=== PATIENT | female | born 1980 | race African-American/Black ===

== ENCOUNTER 2016-09-16 05:00 | Emergency (ER) | payer MEDICAID, OTHER ==
[~2016-09-16] VITALS: Ht 167.6 cm; Wt 90.5 kg
[~2016-09-16 05:00] MED LIST: CYCL-36 PO; IBUP800T23 PO
[2016-09-16 05:03] VITALS: BP 129/73; PULSE 96; RESP 16; TEMP 97.9; O2SAT 97
[2016-09-16] MEDS ORDERED: SODIUM CHLOR 0.9% 1000 ML INJ 1,000 ML IV SCH (05:17)
[2016-09-16 05:28] LABS: AUTOMATED NEUTROPHIL # 5.3 TH/MM3 (1.8-7.7); BASOPHIL # 0.1 TH/MM3 (0-0.2); BASOPHIL % 1.1 % (0.0-2.0); EOSINOPHIL # 0.1 TH/MM3 (0-0.4); EOSINOPHIL % 0.7 % (0.0-4.0); HEMATOCRIT 36.8 % (35.0-46.0); HEMO FLAGS DIFF FINAL; LYMPH % 35.3 % (9.0-44.0); LYMPHOCYTE # 3.3 TH/MM3 (1.0-4.8); MEAN CORPUSCULAR HEMOGLOBIN 28.5 PG (27.0-34.0); MEAN CORPUSCULAR HGB CONC 35.2 % (32.0-36.0); MONO % 6.8 % (0.0-8.0); NEUT % 56.1 % (16.0-70.0); PLATELET COUNT 356 TH/MM3 (150-450); RED BLOOD COUNT 4.54 MIL/MM3 (4.00-5.30); RED CELL DISTRIBUTION WIDTH 14.6 % (11.6-17.2); WHITE BLOOD COUNT 9.5 TH/MM3 (4.0-11.0)
[2016-09-16] MEDS ORDERED: SODIUM CHLORIDE 0.9% FLUSH 10 ML FLUSH IV FLUSH PRN (05:30)
[2016-09-16] MEDS ORDERED: ONDANSETRON HCL 4 MG/2 ML VIAL IVP ONE (05:30)
[2016-09-16] MEDS ORDERED: HYDROmorphone HCL PF 2 MG/ML VIAL IVS ONE (05:30)
--- NOTE | 2016-09-16 05:33 | PD ---
HPI Chief Complaint: Abdominal Pain Time Seen by Provider: 05:15 Travel History International Travel<30 days: No Contact w/Intl Traveler<30days: No Traveled to known affect area: No History of Present Illness HPI So 35-year-old woman presents emergency department complaining of nausea vomiting and diffuse abdominal pain starting at midnight. She describes symptoms as severe. She states she's had trouble one time in the past when she got food poisoning. Only medical history is insomnia and back pain. She otherwise has been feeling well. No sick contacts. No diarrhea. No urinary symptoms. She otherwise had been feeling generally well and healthy before the onset of these symptoms. Patient only abdominal surgical history is a bilateral tubal ligation. History Past Medical History Narrative Medical Insomnia Back pain : 1 Para: 1 Social History Alcohol Use: Yes Tobacco Use: No Allergies-Medications (Allergen,Severity, Reaction): Coded Allergies: No Known Allergies (Verified , 09/16/16) Reported Meds & Prescriptions Reported Meds & Active Scripts Active Reported Ambien (Zolpidem Tartrate) 10 Mg Tab 10 Mg PO HS PRN Flexeril (Cyclobenzaprine HCl) 10 Mg Tab 10 Mg PO TID Review of Systems ROS Limitations: Clinical Condition Physical Exam Exam Limitations: Clinical Condition Narrative GENERAL: 35 year-old woman, tearful, vomiting, only able to speak in short sentences. SKIN: Focused skin assessment warm/dry. HEAD: Atraumatic. Normocephalic. EYES: Pupils equal and round. No scleral icterus. No injection or drainage. ENT: No nasal bleeding or discharge. Mucous membranes pink and moist. NECK: Trachea midline. No JVD. CARDIOVASCULAR: Regular rate and rhythm. No murmur appreciated. RESPIRATORY: No accessory muscle use. Clear to auscultation. Breath sounds equal bilaterally. GASTROINTESTINAL: Abdomen is obese and soft. No significant tenderness. No rebound or guarding. MUSCULOSKELETAL: No obvious deformities. No clubbing. No cyanosis. No edema. Data Data Last Documented VS Vital Signs Date Time Temp Pulse Resp B/P Pulse Ox O2 Delivery O2 Flow Rate FiO2 09/16/16 05:03 97.9 96 16 129/73 97 Room Air Orders Beta Hcg (Quant/Titer) (09/16/16 05:17) Complete Blood Count With Diff (09/16/16 05:17) Comprehensive Metabolic Panel (09/16/16 05:17) Lipase (09/16/16 05:17) Urinalysis - C+S If Indicated (09/16/16 05:17) Ct Abd/Pel W Iv Contrast(Rout) (09/16/16 05:17) Iv Access Insert/Monitor (09/16/16 05:17) Ecg Monitoring (09/16/16 05:17) Oximetry (09/16/16 05:17) Hydromorphone Pf Inj (Dilaudid Pf Inj) (09/16/16 05:30) Ondansetron Inj (Zofran Inj) (09/16/16 05:30) Sodium Chlor 0.9% 1000 Ml Inj (Ns 1000 M (09/16/16 05:17) Sodium Chloride 0.9% Flush (Ns Flush) (09/16/16 05:30) Electrocardiogram (09/16/16 05:17) Ondansetron Inj (Zofran Inj) (09/16/16 06:00) Prochlorperazine Inj (Compazine Inj) (09/16/16 07:00) Diphenhydramine Inj (Benadryl Inj) (09/16/16 07:00) Labs Laboratory Tests Test 09/16/16 09/16/16 05:15 06:05 White Blood Count 9.5 TH/MM3 Red Blood Count 4.54 MIL/MM3 Hemoglobin 12.9 GM/DL Hematocrit 36.8 % Mean Corpuscular Volume 81.0 FL Mean Corpuscular Hemoglobin 28.5 PG Mean Corpuscular Hemoglobin 35.2 % Concent Red Cell Distribution Width 14.6 % Platelet Count 356 TH/MM3 Mean Platelet Volume 8.4 FL Neutrophils (%) (Auto) 56.1 % Lymphocytes (%) (Auto) 35.3 % Monocytes (%) (Auto) 6.8 % Eosinophils (%) (Auto) 0.7 % Basophils (%) (Auto) 1.1 % Neutrophils # (Auto) 5.3 TH/MM3 Lymphocytes # (Auto) 3.3 TH/MM3 Monocytes # (Auto) 0.6 TH/MM3 Eosinophils # (Auto) 0.1 TH/MM3 Basophils # (Auto) 0.1 TH/MM3 CBC Comment DIFF FINAL Differential Comment Sodium Level 145 MEQ/L Potassium Level 3.3 MEQ/L Chloride Level 111 MEQ/L Carbon Dioxide Level 20.1 MEQ/L Anion Gap 14 MEQ/L Blood Urea Nitrogen 7 MG/DL Creatinine 0.74 MG/DL Estimat Glomerular Filtration 107 ML/MIN Rate Random Glucose 157 MG/DL Calcium Level 9.0 MG/DL Total Bilirubin 0.2 MG/DL Aspartate Amino Transf 18 U/L (AST/SGOT) Alanine Aminotransferase 22 U/L (ALT/SGPT) Alkaline Phosphatase 77 U/L Total Protein 7.4 GM/DL Albumin 3.9 GM/DL Lipase 149 U/L Human Chorionic Gonadotropin, LESS THAN 1 Quant MIU/ML Urine Color LIGHT-YELLOW Urine Turbidity HAZY Urine pH 8.5 Urine Specific [place] 1.012 Urine Protein TRACE mg/dL Urine Glucose (UA) 70 mg/dL Urine Ketones 10 mg/dL Urine Occult Blood NEG Urine Nitrite NEG Urine Bilirubin NEG Urine Urobilinogen LESS THAN 2.0 MG/DL Urine Leukocyte Esterase NEG Urine RBC 1 /hpf Urine WBC 2 /hpf Urine Squamous Epithelial 18 /hpf Cells Urine Mucus FEW /lpf Microscopic Urinalysis Comment CULT NOT INDICATED MDM Medical Decision Making Medical Screen Exam Complete: Yes Emergency Medical Condition: Yes Interpretation(s) LABS: CBC is unremarkable. CMP unremarkable Differential Diagnosis Gastroenteritis, gastritis, and abdominal migraine, obstruction, other Narrative Course Medical decision making INITIAL cause a 35-year-old woman who presents to the emergency department complaining of generalized abdominal pain and vomiting. She really doesn't have much tenderness on exam. She appears very uncomfortable with retching and vomiting. We'll check labs, UA, CT, reassess. Minor England MD September 16, 2016 05:33
[2016-09-16 05:55] LABS: ALT (GPT) 22 U/L (10-53); ANION GAP 14 MEQ/L (5-15); AST (GOT) 18 U/L (15-37); BICARBONATE 20.1 MEQ/L (21.0-32.0); BLOOD UREA NITROGEN 7 MG/DL (7-18); CHLORIDE 111 MEQ/L (98-107); GLOMERULAR FILTRATION RATE 107 ML/MIN (>89); POTASSIUM 3.3 MEQ/L (3.5-5.1); SODIUM (NA) 145 MEQ/L (136-145)
[2016-09-16 05:59] LABS: ALKALINE PHOSPHATASE 77 U/L (45-117); BETA HCG QUANT LESS THAN 1 MIU/ML (0-5); TOTAL BILIRUBIN ADULT 0.2 MG/DL (0.2-1.0)
[2016-09-16] MEDS ORDERED: ONDANSETRON HCL 4 MG/2 ML VIAL IV ONE (06:00)
[2016-09-16 06:31] LABS: BLOOD, URINE NEG (NEG); COMMENT (UR) CULT NOT INDICATED; CULTURE IF INDICATED CULT NOT INDICATED; GLUCOSE,URINE 70 mg/dL (NEG); KETONE, URINE 10 mg/dL (NEG); MUCUS URINE FEW /lpf (OCC); NITRITE,URINE NEG (NEG); PH, URINE 8.5 (5.0-8.5); SQUAMOUS EPITHELIAL CELL URINE 18 /hpf (0-5); URINE COLOR LIGHT-YELLOW (YELLW/STRAW)
[2016-09-16] MEDS ORDERED: diphenhydrAMINE HCL 50 MG/ML VIAL IV PUSH ONE (07:00)
[2016-09-16] MEDS ORDERED: PROCHLORPERAZINE INJ 10 MG/2 ML VIAL IV PUSH ONE (07:00)
[2016-09-16] MEDS ORDERED: CYCL1TAB29 PO (07:05)
[2016-09-16] MEDS ORDERED: AMBI10TA PO (07:05)
--- NOTE | 2016-09-16 07:05 | PD ---
Data Data Last Documented VS Vital Signs Date Time Temp Pulse Resp B/P Pulse Ox O2 Delivery O2 Flow Rate FiO2 09/16/16 09:16 100 09/16/16 05:03 97.9 96 16 129/73 Room Air Orders Beta Hcg (Quant/Titer) (09/16/16 05:17) Complete Blood Count With Diff (09/16/16 05:17) Comprehensive Metabolic Panel (09/16/16 05:17) Lipase (09/16/16 05:17) Urinalysis - C+S If Indicated (09/16/16 05:17) Ct Abd/Pel W Iv Contrast(Rout) (09/16/16 05:17) Iv Access Insert/Monitor (09/16/16 05:17) Ecg Monitoring (09/16/16 05:17) Oximetry (09/16/16 05:17) Hydromorphone Pf Inj (Dilaudid Pf Inj) (09/16/16 05:30) Ondansetron Inj (Zofran Inj) (09/16/16 05:30) Sodium Chlor 0.9% 1000 Ml Inj (Ns 1000 M (09/16/16 05:17) Sodium Chloride 0.9% Flush (Ns Flush) (09/16/16 05:30) Electrocardiogram (09/16/16 05:17) Ondansetron Inj (Zofran Inj) (09/16/16 06:00) Prochlorperazine Inj (Compazine Inj) (09/16/16 07:00) Diphenhydramine Inj (Benadryl Inj) (09/16/16 07:00) Iohexol 350 Inj (Omnipaque 350 Inj) (09/16/16 08:02) Labs Laboratory Tests Test 09/16/16 09/16/16 05:15 06:05 White Blood Count 9.5 TH/MM3 Red Blood Count 4.54 MIL/MM3 Hemoglobin 12.9 GM/DL Hematocrit 36.8 % Mean Corpuscular Volume 81.0 FL Mean Corpuscular Hemoglobin 28.5 PG Mean Corpuscular Hemoglobin 35.2 % Concent Red Cell Distribution Width 14.6 % Platelet Count 356 TH/MM3 Mean Platelet Volume 8.4 FL Neutrophils (%) (Auto) 56.1 % Lymphocytes (%) (Auto) 35.3 % Monocytes (%) (Auto) 6.8 % Eosinophils (%) (Auto) 0.7 % Basophils (%) (Auto) 1.1 % Neutrophils # (Auto) 5.3 TH/MM3 Lymphocytes # (Auto) 3.3 TH/MM3 Monocytes # (Auto) 0.6 TH/MM3 Eosinophils # (Auto) 0.1 TH/MM3 Basophils # (Auto) 0.1 TH/MM3 CBC Comment DIFF FINAL Differential Comment Sodium Level 145 MEQ/L Potassium Level 3.3 MEQ/L Chloride Level 111 MEQ/L Carbon Dioxide Level 20.1 MEQ/L Anion Gap 14 MEQ/L Blood Urea Nitrogen 7 MG/DL Creatinine 0.74 MG/DL Estimat Glomerular Filtration 107 ML/MIN Rate Random Glucose 157 MG/DL Calcium Level 9.0 MG/DL Total Bilirubin 0.2 MG/DL Aspartate Amino Transf 18 U/L (AST/SGOT) Alanine Aminotransferase 22 U/L (ALT/SGPT) Alkaline Phosphatase 77 U/L Total Protein 7.4 GM/DL Albumin 3.9 GM/DL Lipase 149 U/L Human Chorionic Gonadotropin, LESS THAN 1 Quant MIU/ML Urine Color LIGHT-YELLOW Urine Turbidity HAZY Urine pH 8.5 Urine Specific [place] 1.012 Urine Protein TRACE mg/dL Urine Glucose (UA) 70 mg/dL Urine Ketones 10 mg/dL Urine Occult Blood NEG Urine Nitrite NEG Urine Bilirubin NEG Urine Urobilinogen LESS THAN 2.0 MG/DL Urine Leukocyte Esterase NEG Urine RBC 1 /hpf Urine WBC 2 /hpf Urine Squamous Epithelial 18 /hpf Cells Urine Mucus FEW /lpf Microscopic Urinalysis Comment CULT NOT INDICATED MDM Supervised Visit with MICHOACANO: No Narrative Course Patient care assumed from Dr. Minor England at 0700. Is a 35-year-old female who presents with nausea vomiting and some mild abdominal discomfort. CT scan is pending this time. Patient was having an episode of dry heaves on arrival. Patient was given Phenergan just before I assumed care. On my initial evaluation after her CAT scan she is states she is feeling better. CAT scan was reassuring. Her basic labs include CBC CMP and UA show a minimal metabolic acidosis with a normal anion gap and a bicarbonate of 20, urinalysis shows minimal ketones consistent with some mild dehydration. She is tolerating by mouth fluids at this time. Discussed results with her and recommended symptomatically management home and she is agreeable. Prescription for Zofran and Phenergan of been written. She is stable for discharge. Discussed return to ED criteria need follow-up with primary care physician. Diagnosis Primary Impression: Nausea & vomiting Qualified Code: R11.2 - Nausea and vomiting, intractability of vomiting not specified, unspecified vomiting type Med/Other Pt SpecificInfo: Prescription(s) given Scripts Promethazine (Phenergan)25 Mg Tab25 Mg PO Q6H PRN (Nausea/Vomiting) #20 TAB Ref 0 Prov:Kai Nunez MD 09/16/16 Ondansetron Odt (Zofran Odt)4 Mg Tab4 Mg SL Q6HR PRN (Nausea/Vomiting) #30 TAB Ref 0 Prov:Kai Nunez MD 09/16/16 Disposition: 01 DISCHARGE HOME Condition: Stable Kai Nunez MD September 16, 2016 07:05
[2016-09-16] MEDS ORDERED: IOHEXOL 350 MG/ML 10 ML VIAL (for RAD DIAG) IV ONE (08:02)
--- NOTE | 2016-09-16 08:18 | RADRPT ---
EXAM DATE/TIME: 09/16/2016 07:43 [facility] COMPARISON: No previous studies available for comparison. INDICATIONS : Abdominal pain, nausea, and vomiting. IV CONTRAST: 96 cc Omnipaque 350 (iohexol) IV ORAL CONTRAST: No oral contrast ingested. RADIATION DOSE: 12.02 CTDIvol (mGy) MEDICAL HISTORY : None SURGICAL HISTORY : Tubal ligation. ENCOUNTER: Initial ACUITY: 1 day PAIN SCALE: 6/10 LOCATION: abdomen TECHNIQUE: Volumetric scanning of the abdomen and pelvis was performed. Using automated exposure control and ad justment of the mA and/or kV according to patient size, radiation dose was kept as low as reasonably achievable to obtain optimal diagnostic quality images. FINDINGS: LOWER LUNGS: The visualized lower lungs are clear. LIVER: Homogeneous density without lesion. There is no dilation of the biliary tree. No calcified gallston es. There is diffuse hepatic steatosis. The gallbladder is unremarkable. SPLEEN: Normal size without lesion. PANCREAS: Within normal limits. KIDNEYS: Normal in size and shape. There is no mass, stone or hydronephrosis. ADRENAL GLANDS: Within normal limits. VASCULAR: There is no aortic aneurysm. BOWEL/MESENTERY: The stomach, small bowel, and colon demonstrate no acute abnormality. There is no free intraperitone al air or fluid. ABDOMINAL WALL: Within normal limits. RETROPERITONEUM: There is no lymphadenopathy. BLADDER: No wall thickening or mass. REPRODUCTIVE: Within normal limits. INGUINAL: There is no lymphadenopathy or hernia. MUSCULOSKELETAL: Within normal limits for patient age. CONCLUSION: 1. Unremarkable bowel gas pattern. 2. Hepatic steatosis. 3. Unremarkable gallbladder. Geovanni Arguello MD on September 16, 2016 at 8:13 Board Certified Radiologist. This report was verified electronically.
[2016-09-16] MEDS ORDERED: ZOFR4TAB3 SL (08:42)
[2016-09-16] MEDS ORDERED: PROM25TA5 PO (08:42)
--- NOTE | 2016-09-16 09:48 | EKG ---
Date Performed: 09/16/2016 Time Performed: 05:40:59 PTAGE: 35 years EKG: Sinus rhythm NORMAL ECG NO PREVIOUS TRACING DOCTOR: Marcia Dill Interpretating Date/Time 09/16/2016 09:45:42
== END 2016-09-16 09:38 | disposition home or self-care (01) ==
LOC: NEPC 05:00
DX: R11.2 Nausea with vomiting, unspecified (principal); R10.9 Unspecified abdominal pain; G47.00 Insomnia, unspecified; M54.9 Dorsalgia, unspecified
CPT/HCPCS: 74177; 80053; 81001; 83690; 84702; 85025; 93005; 96361; 96374; 96375; 96376; 99284; J0780; J1170; J1200; J2405; J7030; Q9967